=== PATIENT | male | born 1990 | race Hispanic/Latino ===

== ENCOUNTER 2023-01-12 05:48 | Inpatient (IN) | payer OTHER ==
[~2023-01-12] VITALS: Ht 172.7 cm; Wt 102.7 kg
[2023-01-12] MEDS ORDERED: KETOROLAC 15MG/ML VIAL (15MG/ML) ONE (06:05)
[2023-01-12] MEDS ORDERED: ONDANSETRON 4MG INJ ONE (06:05)
[2023-01-12] MEDS ORDERED: MORPHINE 4 MG SYG ONE (06:05)
[2023-01-12 06:15] LABS: BASOPHILS % (AUTO) 0.5 % (0.0-5.0); EOSINOPHILS % (AUTO) 1.6 % (0.0-8.0); HEMATOCRIT 47.7 % (42-54); LYMPHOCYTES % (AUTO) 20.9 % (21.0-51.0); MEAN CORPUSCULAR HEMOGLOBIN 30.1 pg (27.0-33.0); MEAN CORPUSCULAR HGB CONC 33.5 g/dL (32.0-36.0); MEAN CORPUSCULAR VOLUME 89.7 fL (79-99); MONOCYTES % (AUTO) 8.1 % (3.0-13.0); NEUTROPHILS % (AUTO) 68.7 % (40.0-77.0); PLATELET COUNT (AUTO) 253 K/uL (130-400); RED BLOOD CELL COUNT(AUTO) 5.32 MIL/uL (4.50-6.20); RED CELL DISTRIBUTION WIDTH 12.9 % (11.0-15.5); WHITE BLOOD COUNT (AUTO) 8.5 K/uL (4.8-10.8)
[2023-01-12 06:28] LABS: ALBUMIN 4.1 g/dL (3.5-5.0); CREATININE 1.1 mg/dL (0.5-1.5); INR 0.93 (0.85-1.15); POTASSIUM 4.2 mmol/L (3.5-5.1); PROTHROMBIN TIME 10.3 SEC (9.6-11.6); TOTAL PROTEIN, SERUM 7.8 g/dL (6.0-8.3)
[2023-01-12 06:29] LABS: PARTIAL THROMBOPLASTIN TIME 33.2 SEC (26.3-35.5)
[2023-01-12] MEDS ORDERED: ONDANSETRON 4MG INJ IVP ONE (06:30)
[2023-01-12] MEDS ORDERED: MORPHINE 4 MG SYG IVP ONE ×2 (06:30→10:30)
[2023-01-12] MEDS ORDERED: 0.9%NACL 1000ML 1,000 ML IV ONE ×2 (06:30→08:00)
[2023-01-12] MEDS ORDERED: KETOROLAC 15MG/ML VIAL (15MG/ML) IV ONE (06:30)
[2023-01-12 07:14] LABS: APPEARANCE,URINE CLEAR (CLEAR); BILIRUBIN,URINE NEGATIVE (NEGATIVE); COLOR,URINE COLORLESS (YELLOW); GLUCOSE, URINE (UA) NEGATIVE (NEGATIVE); KETONES,URINE NEGATIVE (NEGATIVE); LEUKOCYTE ESTERASE ,URINE NEGATIVE Leu/uL (NEGATIVE); NITRATE,URINE NEGATIVE (NEGATIVE); OCCULT BLOOD,URINE SMALL (NEGATIVE); PROTEIN,URINE NEGATIVE (NEGATIVE); UROBILINOGEN,URINE 0.2 mg/dL (0.2-1.0)
[2023-01-12 07:36] LABS: RBC,URINE 0-1 /HPF (0-1); SQUAMOUS EPITHELIAL CELL,UR RARE /HPF (0-2)
[2023-01-12] MEDS ORDERED: TAMSULOSIN HCL 0.4 MG CAP.ER.24H PO ONE (10:00)
[2023-01-12] MEDS ORDERED: MORPHINE 2 MG SYG IVP PRN (11:30)
[2023-01-12 12:16] LABS: HEMOGLOBIN A1C 5.1 % (4.0-6.0)
[2023-01-12] MEDS: 0.9%NACL 1000ML 1,000 ML IV SCH ×2 (12:49→23:55)
[2023-01-12] MEDS: CEFTRIAXONE 1G VIAL IVPB SCH (12:49)
[2023-01-12 13:30] VITALS: BP 132/81
[2023-01-12 16:25] VITALS: BP 129/79
[2023-01-12] MEDS ORDERED: PEG 3350/NA SULF,BICARB,CL/KCL 4000 ML SOLN PO ONE (19:30)
[2023-01-12 19:42] VITALS: BP 136/86
[2023-01-12] MEDS: KETOROLAC 15MG/ML VIAL (15MG/ML) IV PRN (20:15)
[2023-01-12 22:45] VITALS: BP 132/61
[2023-01-13] VITALS (37 sets, daily range): BP systolic 104–157; BP diastolic 47–99
[2023-01-13] MEDS: KETOROLAC 15MG/ML VIAL (15MG/ML) IV PRN ×2 (05:28→15:12)
[2023-01-13 07:21] LABS: BASOPHILS % (AUTO) 0.4 % (0.0-5.0); EOSINOPHILS % (AUTO) 1.7 % (0.0-8.0); HEMATOCRIT 44.9 % (42-54); LYMPHOCYTES % (AUTO) 17.8 % (21.0-51.0); MEAN CORPUSCULAR HEMOGLOBIN 30.4 pg (27.0-33.0); MEAN CORPUSCULAR HGB CONC 33.4 g/dL (32.0-36.0); MEAN CORPUSCULAR VOLUME 90.9 fL (79-99); MONOCYTES % (AUTO) 10.3 % (3.0-13.0); NEUTROPHILS % (AUTO) 69.6 % (40.0-77.0); PLATELET COUNT (AUTO) 227 K/uL (130-400); RED BLOOD CELL COUNT(AUTO) 4.94 MIL/uL (4.50-6.20); RED CELL DISTRIBUTION WIDTH 12.7 % (11.0-15.5); WHITE BLOOD COUNT (AUTO) 8.1 K/uL (4.8-10.8)
[2023-01-13 07:33] LABS: CREATININE 1.1 mg/dL (0.5-1.5); POTASSIUM 3.9 mmol/L (3.5-5.1)
[2023-01-13] MEDS ORDERED: TAMSULOSIN HCL 0.4 MG CAP.ER.24H PO SCH (09:00)
[2023-01-13] MEDS ORDERED: PROPOFOL 10 MG/ML 20ML VIAL IV ONE (10:28)
[2023-01-13] MEDS ORDERED: LIDOCAINE PF 100MG/5ML (2%) SYRINGE 5ML ONE (10:28)
[2023-01-13] MEDS ORDERED: SUCCINYLCHOLINE CHLORIDE 20 MG/ML 10 ML VIAL ONE (10:28)
[2023-01-13] MEDS ORDERED: NEOSTIGMINE 5MG/5ML SYR IV ONE (10:28)
[2023-01-13] MEDS ORDERED: MIDAZOLAM HCL 1 MG/ML 2ML VIAL ONE (10:28)
[2023-01-13] MEDS ORDERED: DEXAMETHASONE SOD PHOSPHATE 10MG/ML 1ML VIAL ONE (10:28)
[2023-01-13] MEDS ORDERED: ONDANSETRON 4MG INJ ONE ×2 (10:28→11:34)
[2023-01-13] MEDS ORDERED: GLYCOPYRROLATE 1 MG/5 ML SYRINGE ONE (10:28)
[2023-01-13] MEDS ORDERED: FENTANYL CITRATE PF 50 MCG/1 ML 2ML VIAL ONE (10:29)
[2023-01-13] MEDS ORDERED: ROCURONIUM 10MG/1ML SYR 10 MG/ML ML ONE (10:29)
[2023-01-13] MEDS ORDERED: KETOROLAC 30MG VIAL (30MG/ML) ONE (11:07)
[2023-01-13] MEDS: CEFTRIAXONE 1G VIAL IVPB SCH (11:30)
== END 2023-01-13 18:40 | disposition home or self-care (01) | DRG 694 ==
LOC: EDH 05:48 → EDHIP 05:49 → 4BH 13:30
PROVIDERS: ADMIT Internal Medicine; ATTEND Internal Medicine
PROC: 0TC68ZZ Extirpation of Matter from Right Ureter, Via Natural or Artificial Opening Endoscopic (ICD-10-PCS; principal; 2023-01-13 10:28)
DX: N13.2 Hydronephrosis with renal and ureteral calculous obstruction (principal); F17.210 Nicotine dependence, cigarettes, uncomplicated; Z20.822 Contact with and (suspected) exposure to COVID-19; E86.0 Dehydration; Z87.442 Personal history of urinary calculi
CPT/HCPCS: 36415; 74176; 80048; 80053; 81001; 83036; 85025; 85610; 85730; 87088; 87635; G0378; J0330; J0696; J1100; J1885; J2001; J2250; J2270; J2405; J2704; J2710; J3010; J3490; J7030

== ENCOUNTER → 2023-01-14 | Emergency (ER) | payer OTHER | LOC: EDH 00:17 | DX: R10.9 Unspecified abdominal pain (principal); Z53.21 Procedure and treatment not carried out due to patient leaving prior to being seen by health care provider ==